=== PATIENT | male | born 1990 | race American Indian/Alaskan Native ===

== ENCOUNTER 2016-09-20 17:39 | Emergency (ER) | payer MEDICAID ==
[2016-09-20 18:09] VITALS: BP 173/95
--- NOTE | 2016-09-20 18:37 | EDM.PDOC ---
ED HPI ENT - General Chief Complaint: ENT Problem Stated Complaint: SORE THROAT Time Seen by Provider: 09/20/16 18:05 Source of Information: Reports: Patient History Limitations: Reports: No limitations - History of Present Illness INITIAL COMMENTS - FREE TEXT/NARRATIVE: This 25 yo male patient reports to the ED with a 2 day history of a sore throat with no fever. The patient has not been taking anything for temporary symptom relief. Symptom Onset Date: 09/18/16 Timing/Duration: Reports: Constant, Getting worse Severity: moderate Location: Reports: throat Quality: Reports: Ache, Dull Improves with: Reports: None Worsens with: Reports: None Associated Symptoms: Reports: no other symptoms - Related Data Allergies/ADRs: Allergies Allergy/AdvReac Type Severity Reaction Status Date / Time No Known Allergies Allergy Verified 09/20/16 18:10 Home Meds: Home Meds . [No Known Home Meds] 02/13/16 [History] Past Medical History - Past Health History Medical/Surgical History: Denies Medical/Surgical History HEENT History: Reports: None Cardiovascular History: Reports: None Respiratory History: Reports: None Gastrointestinal History: Reports: None Genitourinary History: Reports: None Musculoskeletal History: Reports: None Neurological History: Reports: None Psychiatric History: Reports: None Endocrine/Metabolic History: Reports: None Hematologic History: Reports: None Immunologic History: Reports: None Oncologic (Cancer) History: Reports: None Dermatologic History: Reports: None - Past Surgical History HEENT Surgical History: Reports: None Cardiovascular Surgical History: Reports: None Respiratory Surgical History: Reports: None GI Surgical History: Reports: None Male Surgical History: Reports: None Neurological Surgical History: Reports: None Musculoskeletal Surgical History: Reports: None Oncologic Surgical History: Reports: None Social & Family History - Family History Family Medical History: Noncontributory - Tobacco Use Smoking Status *Q: Never Smoker Second Hand Smoke Exposure: No - Caffeine Use Caffeine Use: Reports: Coffee, Soda - Recreational Drug Use Recreational Drug Use: No ED ROS ENT - Review of Systems Review Of Systems: ROS reveals no pertinent complaints other than HPI. ED EXAM, ENT - Physical Exam Exam: See Below Exam Limited By: No limitations General Appearance: alert, WD/WN, no apparent distress, obese Eye Exam: bilateral eye: EOMI, normal inspection, PERRL Ears: normal external exam, normal canal, hearing grossly normal, normal TMs Nose: normal inspection, normal mucousa, no blood Mouth/Throat: Normal gums, Normal lips, Normal teeth, Tonsillar erythema Head: atraumatic, normocephalic Neck: normal inspection, supple, non-tender, full range of motion Respiratory/Chest: no respiratory distress, lungs clear, normal breath sounds, no accessory muscle use, chest non-tender Cardiovascular: normal peripheral pulses, regular rate, rhythm, no edema, no gallop, no JVD, no murmur, no rub GI/Abdominal: normal bowel sounds, soft, non tender, no organomegaly, no distention, no abnormal bruit, no mass, other (morbid obesity ) (Male) Exam: Deferred Rectal (Males) Exam: Deferred Back: normal inspection, full range of motion Extremities: normal inspection, normal range of motion, non-tender, no pedal edema, normal capillary refill Neurological: alert, oriented, CN II-XII intact, normal cognition, normal gait, normal reflexes, no motor/sensory deficits Psychiatric: normal affect, normal mood Skin: Warm, Dry, Intact, Normal color, No rash Lymphatic: no adenopathy Course - Vital Signs Last Recorded V/S: Last Vital Signs Temp 37.7 C 09/20/16 18:07 Pulse 87 09/20/16 18:07 Resp 20 09/20/16 18:07 BP 173/95 H 09/20/16 18:07 Pulse Ox 98 09/20/16 18:07 - Orders/Labs/Meds Orders: Active Orders 24 hr Category Date Time Status CULTURE STREP A CONFIRMATION [] Stat Lab 09/20/16 18:10 Results STREP SCRN A RAPID W CULT CONF [] Stat Lab 09/20/16 18:10 Ordered Departure - Departure Time of Disposition: 18:34 Disposition: Home, Self-Care 01 Condition: fair Clinical Impression: URI (upper respiratory infection) Qualifiers: URI type: unspecified viral URI Qualified Code(s): J06.9 - Acute upper respiratory infection, unspecified; B97.89 - Other viral agents as the cause of diseases classified elsewhere Instructions: Upper Respiratory Infection, Pediatric Forms: ED Department Discharge Care Plan Goals: The patient was advised of the examination and lab results during the visit. The patient was encouraged to take over the counter medications for temporary symptom relief. If the patient has any additional symptoms or concerns, the patient should follow-up with his primary care facility or return to the emergency department. - My Orders Last 24 Hours: My Active Orders 09/20/16 18:10 CULTURE STREP A CONFIRMATION [RM] Stat STREP SCRN A RAPID W CULT CONF [RM] Stat - Assessment/Plan Last 24 Hours: My Active Orders 09/20/16 18:10 CULTURE STREP A CONFIRMATION [RM] Stat STREP SCRN A RAPID W CULT CONF [RM] Stat
== END 2016-09-20 18:46 | disposition home or self-care (01) ==
LOC: DL.ED 17:39
DX: J06.9 Acute upper respiratory infection, unspecified (principal); B97.89 Other viral agents as the cause of diseases classified elsewhere
CPT/HCPCS: 87081; 87430; 99282

== ENCOUNTER 2016-11-23 16:48 | Emergency (ER) | payer MEDICAID | END 2016-11-23 18:20 | disposition left against medical advice (07) | LOC: DL.ED 16:48 | DX: Z53.21 Procedure and treatment not carried out due to patient leaving prior to being seen by health care provider (principal) ==

== ENCOUNTER 2016-11-23 21:42 | Emergency (ER) | payer MEDICAID ==
[2016-11-23 22:18] VITALS: BP 148/99
--- NOTE | 2016-11-23 23:10 | EDM.PDOC ---
ED HISTORY OF PRESENT ILLNESS - General Chief Complaint: Fever Stated Complaint: STUFFY NOSE AND HIGH FEVER Time Seen by Provider: 11/23/16 22:15 Source of Information: Reports: Patient, Family History Limitations: Reports: No limitations - History of Present Illness INITIAL COMMENTS - FREE TEXT/NARRATIVE: c/o cough congestion with fever starting this am. Last tylenol at 0700. - Related Data Allergies/ADRs: Allergies Allergy/AdvReac Type Severity Reaction Status Date / Time No Known Allergies Allergy Verified 11/23/16 22:10 Home Meds: Home Meds . [No Known Home Meds] 02/13/16 [History] Past Medical History - Past Health History Medical/Surgical History: Denies Medical/Surgical History HEENT History: Reports: None Cardiovascular History: Reports: None Respiratory History: Reports: None Gastrointestinal History: Reports: None Genitourinary History: Reports: None Musculoskeletal History: Reports: None Neurological History: Reports: None Psychiatric History: Reports: None Endocrine/Metabolic History: Reports: None Hematologic History: Reports: None Immunologic History: Reports: None Oncologic (Cancer) History: Reports: None Dermatologic History: Reports: None - Infectious Disease History Infectious Disease History: Reports: None - Past Surgical History HEENT Surgical History: Reports: None Cardiovascular Surgical History: Reports: None Respiratory Surgical History: Reports: None GI Surgical History: Reports: None Male Surgical History: Reports: None Neurological Surgical History: Reports: None Musculoskeletal Surgical History: Reports: None Oncologic Surgical History: Reports: None Social & Family History - Family History Family Medical History: Noncontributory - Tobacco Use Smoking Status *Q: Never Smoker Second Hand Smoke Exposure: No - Caffeine Use Caffeine Use: Reports: Soda - Recreational Drug Use Recreational Drug Use: No ED ROS GENERAL - Review of Systems Review Of Systems: See Below Constitutional: Reports: fever HEENT: Reports: Sinus problem. Denies: Ear pain, Throat pain Respiratory: Reports: Cough. Denies: Shortness of Breath Cardiovascular: Reports: No symptoms GI/Abdominal: Reports: No symptoms Musculoskeletal: Reports: no symptoms Neurological: Reports: No Symptoms ED EXAM, GENERAL - Physical Exam Exam: See Below Exam Limited By: No limitations General Appearance: alert, no apparent distress, obese (morbid) Eye Exam: bilateral eye: EOMI Ears: normal external exam, normal TMs Nose: normal inspection Throat/Mouth: Normal inspection, Normal oropharynx Head: atraumatic, normocephalic. No: sinus tenderness Neck: normal inspection Respiratory/Chest: no respiratory distress, lungs clear, normal breath sounds Cardiovascular: normal peripheral pulses, regular rate, rhythm GI/Abdominal: soft Extremities: normal inspection Neurological: alert, oriented, normal cognition (mild cognitive impairment) Psychiatric: normal affect, normal mood Skin Exam: Warm, Dry, Intact, Normal color Course - Vital Signs Last Recorded V/S: Last Vital Signs Temp 97.4 F 11/23/16 22:12 Pulse 90 11/23/16 22:12 Resp 18 11/23/16 22:12 BP 148/99 H 11/23/16 22:12 Pulse Ox 97 11/23/16 22:12 - Radiology Interpretation Free Text/Narrative:: CXR negative Departure - Departure Time of Disposition: 22:57 Disposition: Home, Self-Care 01 Condition: good Clinical Impression: Upper respiratory infection Qualifiers: URI type: unspecified URI Qualified Code(s): J06.9 - Acute upper respiratory infection, unspecified Referrals: Shi Ceron MD [Primary Care Provider] - Forms: ED Department Discharge Additional Instructions: may alternate tylenol and ibuprofen every 4 hours as needed for fever robitussin or OTC cough medication per package instructions increase liquids follow up if symptoms worsen
== END 2016-11-23 23:12 | disposition home or self-care (01) ==
LOC: DL.ED 21:42
DX: J06.9 Acute upper respiratory infection, unspecified (principal)
CPT/HCPCS: 71020; 99283

== ENCOUNTER 2017-04-24 17:03 | Emergency (ER) | payer MEDICAID ==
--- NOTE | 2017-04-24 17:51 | EDM.PDOC ---
ED HPI GENERAL MEDICAL PROBLEM - General Chief Complaint: Chest Pain Stated Complaint: CHEST PAINS, [id number] Time Seen by Provider: 04/24/17 17:48 Source of Information: Reports: Patient, Family, RN, RN Notes Reviewed History Limitations: Reports: No Limitations - History of Present Illness Onset: Gradual Duration: Intermittent Location: Reports: Chest Quality: Reports: Ache, Pressure, Sharp Severity: Moderate Improves with: Reports: None Worsens with: Reports: Movement Context: Reports: Activity, Exercise, Lifting Associated Symptoms: Reports: No Other Symptoms Middle Chest Pain Score (Numeric/FACES): 5 - Related Data Allergies Allergy/AdvReac Type Severity Reaction Status Date / Time No Known Allergies Allergy Verified 04/24/17 17:32 Home Meds: Home Meds . [No Known Home Meds] 02/13/16 [History] Past Medical History - Past Health History Medical/Surgical History: Denies Medical/Surgical History HEENT History: Reports: None Cardiovascular History: Reports: None Respiratory History: Reports: None Gastrointestinal History: Reports: None Genitourinary History: Reports: None Musculoskeletal History: Reports: None Neurological History: Reports: None Psychiatric History: Reports: None Endocrine/Metabolic History: Reports: None Hematologic History: Reports: None Immunologic History: Reports: None Oncologic (Cancer) History: Reports: None Dermatologic History: Reports: None - Infectious Disease History Infectious Disease History: Reports: None - Past Surgical History HEENT Surgical History: Reports: None Cardiovascular Surgical History: Reports: None Respiratory Surgical History: Reports: None GI Surgical History: Reports: None Male Surgical History: Reports: None Neurological Surgical History: Reports: None Musculoskeletal Surgical History: Reports: None Oncologic Surgical History: Reports: None Social & Family History - Family History Family Medical History: Noncontributory - Tobacco Use Smoking Status *Q: Never Smoker Second Hand Smoke Exposure: No - Caffeine Use Caffeine Use: Reports: Soda - Recreational Drug Use Recreational Drug Use: No ED ROS GENERAL - Review of Systems Review Of Systems: ROS reveals no pertinent complaints other than HPI. ED EXAM, GENERAL - Physical Exam Exam: See Below Exam Limited By: No Limitations General Appearance: Alert, WD/WN, No Apparent Distress Eye Exam: Bilateral Eye: Normal Inspection, PERRL Ear Exam: Bilateral Ear: Auricle Normal, Canal Normal, TM normal Nose: Normal Inspection, Normal Mucosa, No Blood Throat/Mouth: Normal Inspection, Normal Lips, Normal Teeth, Normal Gums, Normal Oropharynx, Normal Voice, No Airway Compromise Head: Atraumatic, Normocephalic Neck: Normal Inspection, Supple, Non-Tender, Full Range of Motion Respiratory/Chest: No Respiratory Distress, Lungs Clear, Normal Breath Sounds, No Accessory Muscle Use. No: Chest Non-Tender Cardiovascular: Normal Peripheral Pulses, Regular Rate, Rhythm, No Gallop, No JVD, No Murmur, No Rub Peripheral Pulses: 2+: Radial (L), Radial (R) GI/Abdominal: Normal Bowel Sounds, Soft, Non-Tender (Male) Exam: Deferred Rectal (Males) Exam: Deferred Back Exam: Normal Inspection, Full Range of Motion Extremities: Normal Inspection, Normal Range of Motion, Non-Tender, No Pedal Edema, Normal Capillary Refill Neurological: Alert, Oriented, Normal Cognition, Normal Gait, No Motor/Sensory Deficits Psychiatric: Normal Affect, Normal Mood Skin Exam: Warm, Dry, Intact, Normal Color, No Rash Lymphatic: No Adenopathy EKG INTERPRETATION EKG Date: 04/24/17 Time: 17:34 Rhythm: NSR [place]: Normal P-Wave: Present QRS: Normal ST-T: Normal QT: Normal Comparison: NA - No Prior EKG Course - Vital Signs Last Recorded V/S: Last Vital Signs Temp 97.3 F 04/24/17 17:20 Pulse 86 04/24/17 17:20 Resp 20 04/24/17 17:20 BP 165/99 H 04/24/17 17:20 Pulse Ox 100 04/24/17 17:20 - Orders/Labs/Meds Orders: Active Orders 24 hr Category Date Time Status EKG Documentation Completion [RC] STAT Care 04/24/17 17:26 Active Labs: Laboratory Tests 04/24/17 04/24/17 04/24/17 Range/Units 17:56 17:56 18:43 WBC 7.8 (5.0-10.0) 10^3/uL RBC 5.42 (4.6-6.2) 10^6/uL Hgb 15.4 (14.0-18.0) g/dL Hct 46.8 (40.0-54.0) % MCV 86.3 (80-100) fL MCH 28.4 (27.0-34.0) pg MCHC 32.9 L (33.0-35.0) g/dL Plt Count 290 (150-450) 10^3/uL Neut % (Auto) 65.7 (42.2-75.2) % Lymph % (Auto) 22.7 (20.5-50.1) % [place] % (Auto) 7.7 (2-8) % Eos % (Auto) 3.8 H (1.0-3.0) % Baso % (Auto) 0.1 (0.0-1.0) % Sodium 137 (135-145) mmol/L Potassium 4.3 (3.6-5.0) mmol/L Chloride 97 L (101-111) mmol/L Carbon Dioxide 31.0 (21.0-31.0) mmol/L Anion Gap 13.3 BUN 14 (7-18) mg/dL Creatinine 0.8 (0.6-1.3) mg/dL Est Cr Clr Drug Dosing 151.65 mL/min Estimated GFR (MDRD) > 60 BUN/Creatinine Ratio 17.50 Glucose 100 (74-105) mg/dL Calcium 9.6 (8.4-10.2) mg/dl Total Bilirubin 0.5 (0.2-1.0) mg/dL AST 49 H (10-42) IU/L ALT 66 H (10-60) IU/L Alkaline Phosphatase 94 (42-121) IU/L Troponin I < 0.02 (0.00-0.02) ng/ml Total Protein 8.5 H (6.7-8.2) g/dl Albumin 4.0 (3.2-5.5) g/dl Globulin 4.5 Albumin/Globulin Ratio 0.89 Urine Color Yellow (YELLOW) Urine Appearance Clear (CLEAR) Urine pH 6.5 (5.0-9.0) Ur Specific [place] 1.025 (1.005-1.030) Urine Protein Negative (NEGATIVE) Urine Glucose (UA) Negative (NEGATIVE) Urine Ketones Negative (NEGATIVE) Urine Occult Blood Negative (NEGATIVE) Urine Nitrite Negative (NEGATIVE) Urine Bilirubin Negative (NEGATIVE) Urine Urobilinogen 0.2 (0.2-1.0) mg/dL Ur Leukocyte Esterase Negative (NEGATIVE) Urine RBC 0-5 /HPF Urine WBC 0-5 (0-5/HPF) /HPF Ur Epithelial Cells Few /HPF Urine Bacteria Few (0-FEW/HPF) /HPF - Radiology Interpretation Free Text/Narrative:: Chest xray: Unremarkable See rad report Departure - Departure Time of Disposition: 18:55 Disposition: Home, Self-Care 01 Condition: Good Clinical Impression: Acute costochondritis Muscle strain of chest wall Qualifiers: Encounter type: initial encounter Qualified Code(s): S29.011A - Strain of muscle and tendon of front wall of thorax, initial encounter Instructions: Costochondritis, [id number], Muscle Strain, [id number] Forms: ED Department Discharge Additional Instructions: Continue to exercise as tolerated. Ibuprofen as directed for pain. Follow up with your primary care provider in 4-5 days. - My Orders Last 24 Hours: My Active Orders 04/24/17 17:26 EKG Documentation Completion [RC] STAT - Assessment/Plan Last 24 Hours: My Active Orders 04/24/17 17:26 EKG Documentation Completion [RC] STAT
[2017-04-24 17:54] VITALS: BP 165/99
[2017-04-24 18:26] LABS: CHLORIDE,CL 97 mmol/L (101-111); SODIUM,NA 137 mmol/L (135-145)
--- NOTE | 2017-04-26 15:32 | EKG ---
04/24/2017 - CYNDEE STEPHENS - EKG per my reading shows sinus rhythm at the rate of 90. No acute ST changes. [facility] /[id number]
== END 2017-04-24 19:32 | disposition home or self-care (01) ==
LOC: DL.ED 17:03
DX: S29.011A Strain of muscle and tendon of front wall of thorax, initial encounter (principal); M94.0 Chondrocostal junction syndrome [Tietze]; X50.9XXA Other and unspecified overexertion or strenuous movements or postures, initial encounter
CPT/HCPCS: 36415; 71010; 80053; 81001; 84484; 85025; 93005; 93010; 99285

== ENCOUNTER 2017-08-04 16:14 | Emergency (ER) | payer MEDICAID ==
[2017-08-04 16:42] VITALS: BP 161/73
[2017-08-04] MEDS ORDERED: Codeine/Promethazine 10-6.25 MG/5 ML Syrup 5 ML UD Cup PO ONE (17:10)
[2017-08-04] MEDS ORDERED: predniSONE 20 MG Tab PO ONE (17:11)
[2017-08-04] MEDS ORDERED: Albuterol 6.7 GM Inhaler INH ONE (17:11)
--- NOTE | 2017-08-05 17:14 | EDM.PDOC ---
Scribed by Alondra Arciniega 08/05/17 1713 for Artem Armendariz MD ED HPI GENERAL MEDICAL PROBLEM - General Chief Complaint: ENT Problem Stated Complaint: COLD [id number] Time Seen by Provider: 08/04/17 16:32 Source of Information: Reports: Patient, RN, RN Notes Reviewed History Limitations: Reports: No Limitations - History of Present Illness INITIAL COMMENTS - FREE TEXT/NARRATIVE: Patient presents with complaint of 1 week of fever, cough, generalized body aches, and sore throat. Brother at home with same symptoms. Denies difficulty breathing or wheezing. Duration: Week(s): (1) Location: Reports: Other (sore throat) Quality: Reports: Ache, Burning Severity: Moderate Improves with: Reports: None Worsens with: Reports: None Associated Symptoms: Reports: No Other Symptoms - Related Data Allergies Allergy/AdvReac Type Severity Reaction Status Date / Time No Known Allergies Allergy Verified 08/04/17 17:35 Home Meds: Home Meds . [No Known Home Meds] 02/13/16 [History] Past Medical History - Past Health History Medical/Surgical History: Denies Medical/Surgical History HEENT History: Reports: None Cardiovascular History: Reports: None Respiratory History: Reports: None Gastrointestinal History: Reports: None Genitourinary History: Reports: None Musculoskeletal History: Reports: None Neurological History: Reports: None Psychiatric History: Reports: None Endocrine/Metabolic History: Reports: None, Obesity/BMI 30+ Hematologic History: Reports: None Immunologic History: Reports: None Oncologic (Cancer) History: Reports: None Dermatologic History: Reports: None - Infectious Disease History Infectious Disease History: Reports: None - Past Surgical History HEENT Surgical History: Reports: None Cardiovascular Surgical History: Reports: None Respiratory Surgical History: Reports: None GI Surgical History: Reports: None Male Surgical History: Reports: None Neurological Surgical History: Reports: None Musculoskeletal Surgical History: Reports: None Oncologic Surgical History: Reports: None Social & Family History - Family History Family Medical History: Noncontributory - Tobacco Use Smoking Status *Q: Never Smoker Second Hand Smoke Exposure: No - Caffeine Use Caffeine Use: Reports: Soda - Recreational Drug Use Recreational Drug Use: No ED ROS ENT - Review of Systems Review Of Systems: ROS reveals no pertinent complaints other than HPI. ED EXAM, ENT - Physical Exam Exam: See Below Exam Limited By: No Limitations General Appearance: Alert, No Apparent Distress, Obese Eye Exam: Bilateral Eye: Normal Inspection Ears: Normal External Exam, Normal Canal, Hearing Grossly Normal, Normal TMs Nose: No Blood, Other (mild nasal congestion with yellow mucus.) Mouth/Throat: Normal Lips, Other (streak of pharyngeal erythema.) Head: Atraumatic, Normocephalic Neck: Normal Inspection, Supple, Non-Tender, Full Range of Motion Respiratory/Chest: No Respiratory Distress, No Accessory Muscle Use, Chest Non- Tender, Decreased Breath Sounds, Other (harsh dry cough). No: Rhonchi, Wheezing , Stridor Cardiovascular: Normal Peripheral Pulses, Regular Rate, Rhythm, No Edema, No Gallop, No JVD, No Murmur, No Rub GI/Abdominal: Other (obese) (Male) Exam: Deferred Rectal (Males) Exam: Deferred Back: Normal Inspection, Full Range of Motion Extremities: Normal Inspection, Normal Range of Motion, Non-Tender, No Pedal Edema, Normal Capillary Refill Neurological: Alert, Oriented, CN II-XII Intact, Normal Cognition, Normal Gait, No Motor/Sensory Deficits Psychiatric: Normal Affect, Normal Mood Skin: Warm, Dry, Intact, Normal Color, No Rash Course - Vital Signs Last Recorded V/S: Last Vital Signs Temp 36.4 C 08/04/17 16:40 Pulse 72 08/04/17 16:40 Resp 24 H 08/04/17 16:40 BP 161/73 H 08/04/17 16:40 Pulse Ox 100 08/04/17 16:40 - Orders/Labs/Meds Orders: Active Orders 24 hr Category Date Time Status RT Post Treatment Assessment [RC] Click to Edit Care 08/04/17 17:12 Active RT Pre-Treatment Assessment [RC] Click to Edit Care 08/04/17 17:12 Active Labs: Rapid strep: Negative. Meds: Medications Discontinued Medications Generic Name Dose Route Start Last Admin Trade Name Freq PRN Reason Stop Dose Admin Albuterol 6.7 gm 08/04/17 17:11 08/04/17 17:19 Proventil Hfa INH 08/04/17 17:12 2 inhalation ONETIME ONE Administration Prednisone 60 mg 08/04/17 17:11 08/04/17 17:18 Prednisone PO 08/04/17 17:12 60 mg ONETIME ONE Administration Promethazine HCl/Codeine 10 ml 08/04/17 17:10 08/04/17 17:19 Phenergan With Codeine PO 08/04/17 17:11 10 ml ONETIME ONE Administration Departure - Departure Time of Disposition: 17:20 Disposition: Home, Self-Care 01 Condition: Good Clinical Impression: Viral URI with cough Acute bronchitis Qualifiers: Bronchitis organism: unspecified organism Qualified Code(s): J20.9 - Acute bronchitis, unspecified - Discharge Information Instructions: Acute Bronchitis, [id number], Upper Respiratory Infection, Adult, [id number] Referrals: PCP,None [Primary Care Provider] - Forms: ED Department Discharge Additional Instructions: RX: Prednisone 20mg. RX: Tesselon Perles 200mg. RX: Loratidine D 24hour. Use Albuterol inhaler 2 puffs q 4hours as needed. Follow up in clinic if not improving in 5 days. - My Orders Last 24 Hours: My Active Orders 08/04/17 17:12 RT Post Treatment Assessment [RC] Click to Edit RT Pre-Treatment Assessment [RC] Click to Edit - Assessment/Plan Last 24 Hours: My Active Orders 08/04/17 17:12 RT Post Treatment Assessment [RC] Click to Edit RT Pre-Treatment Assessment [RC] Click to Edit I have read and agree with the documentation that has been completed regarding this visit. By signing this record, I attest that the documentation was completed in my physical presence and is an accurate record of the encounter.
== END 2017-08-04 17:32 | disposition home or self-care (01) ==
LOC: DL.ED 16:14
DX: J20.9 Acute bronchitis, unspecified (principal); J06.9 Acute upper respiratory infection, unspecified
CPT/HCPCS: 87081; 87430; 99283; A9270

== ENCOUNTER 2017-12-30 17:47 | Emergency (ER) | payer MEDICAID ==
[2017-12-30 18:13] VITALS: BP 164/83
--- NOTE | 2017-12-30 18:56 | EDM.PDOC ---
ED HPI GENERAL MEDICAL PROBLEM - General Chief Complaint: Respiratory Problem Stated Complaint: COLD [id number] Time Seen by Provider: 12/30/17 18:45 Source of Information: Reports: Patient History Limitations: Reports: No Limitations - History of Present Illness INITIAL COMMENTS - FREE TEXT/NARRATIVE: This 27 yo male patient reports to the ED with a 3 day history of a cough and sore throat. The patient has taken "some" Robitussin and 1 dose of Tylenol last night. The patient has not been seen or attempted to be seen in the clinic. The patient reports his sore throat got much worse today with his cough. Onset Date: 12/28/17 Duration: Constant, Getting Worse Location: Reports: Neck (sore throat), Chest (cough) Quality: Reports: Other Severity: Moderate Improves with: Reports: None Worsens with: Reports: Other (cough) Associated Symptoms: Reports: Cough, Other (sore throat) Treatments [employer] WHEEL [employer]ER: Reports: Acetaminophen (At 2200 last night, but nothing today), Other Medication(s) (Robitussin for cough) Headache Pain Score (Numeric/FACES): 5 - Related Data Allergies Allergy/AdvReac Type Severity Reaction Status Date / Time No Known Allergies Allergy Verified 08/04/17 17:35 Home Meds: Home Meds . [No Known Home Meds] 02/13/16 [History] Past Medical History - Past Health History Medical/Surgical History: Denies Medical/Surgical History HEENT History: Reports: None Cardiovascular History: Reports: None Respiratory History: Reports: None Gastrointestinal History: Reports: None Genitourinary History: Reports: None Musculoskeletal History: Reports: None Neurological History: Reports: None Psychiatric History: Reports: None Endocrine/Metabolic History: Reports: None, Obesity/BMI 30+ Hematologic History: Reports: None Immunologic History: Reports: None Oncologic (Cancer) History: Reports: None Dermatologic History: Reports: None - Infectious Disease History Infectious Disease History: Reports: None - Past Surgical History HEENT Surgical History: Reports: None Cardiovascular Surgical History: Reports: None Respiratory Surgical History: Reports: None GI Surgical History: Reports: None Male Surgical History: Reports: None Neurological Surgical History: Reports: None Musculoskeletal Surgical History: Reports: None Oncologic Surgical History: Reports: None Social & Family History - Family History Family Medical History: Noncontributory - Tobacco Use Smoking Status *Q: Never Smoker - Caffeine Use Caffeine Use: Reports: None - Recreational Drug Use Recreational Drug Use: No ED ROS GENERAL - Review of Systems Review Of Systems: ROS reveals no pertinent complaints other than HPI. ED EXAM, GENERAL - Physical Exam Exam: See Below Exam Limited By: No Limitations General Appearance: Alert, WD/WN, Mild Distress, Obese (Morbid obesity) Eye Exam: Bilateral Eye: EOMI, Normal Inspection, PERRL Ears: Normal External Exam, Normal Canal, Hearing Grossly Normal, Normal TMs Nose: Normal Inspection, Normal Mucosa, No Blood Throat/Mouth: Normal Inspection, Normal Lips, Normal Teeth, Normal Gums, Normal Oropharynx, Normal Voice, No Airway Compromise Head: Atraumatic, Normocephalic Neck: Normal Inspection, Supple, Non-Tender, Full Range of Motion Respiratory/Chest: No Respiratory Distress, Lungs Clear, Normal Breath Sounds, No Accessory Muscle Use, Chest Non-Tender Cardiovascular: Normal Peripheral Pulses, Regular Rate, Rhythm, No Edema, No Gallop, No JVD, No Murmur, No Rub GI/Abdominal: Normal Bowel Sounds, Soft, Non-Tender, No Organomegaly, No Distention, No Abnormal Bruit, No Mass (Male) Exam: Deferred Rectal (Males) Exam: Deferred Back Exam: Normal Inspection, Full Range of Motion, NT Extremities: Normal Inspection, Normal Range of Motion, Non-Tender, Normal Capillary Refill, No Pedal Edema Neurological: Alert, Oriented, CN II-XII Intact, Normal Cognition, Normal Gait, Normal Reflexes, No Motor/Sensory Deficits Psychiatric: Normal Affect, Normal Mood Skin Exam: Warm, Dry, Intact, Normal Color, No Rash Lymphatic: No Adenopathy Course - Vital Signs Last Recorded V/S: Last Vital Signs Temp 36.2 C 12/30/17 18:12 Pulse 80 12/30/17 18:12 Resp 16 12/30/17 18:12 BP 164/83 H 12/30/17 18:12 Pulse Ox 97 12/30/17 18:12 - Orders/Labs/Meds Orders: Active Orders 24 hr Category Date Time Status COMPREHENSIVE METABOLIC PN,CMP [CHEM] Urgent Lab 12/30/17 19:05 Received CULTURE STREP A CONFIRMATION [RM] Stat Lab 12/30/17 18:51 Results STREP SCRN A RAPID W CULT CONF [RM] Stat Lab 12/30/17 18:51 Results Labs: Laboratory Tests 12/30/17 Range/Units 19:05 WBC 4.9 L (5.0-10.0) 10^3/uL RBC 5.63 (4.6-6.2) 10^6/uL Hgb 16.1 (14.0-18.0) g/dL Hct 48.0 (40.0-54.0) % MCV 85.3 (80-100) fL MCH 28.6 (27.0-34.0) pg MCHC 33.5 (33.0-35.0) g/dL Plt Count 234 (150-450) 10^3/uL Neut % (Auto) 51.7 (42.2-75.2) % Lymph % (Auto) 26.5 (20.5-50.1) % [place] % (Auto) 11.7 H (2-8) % Eos % (Auto) 9.9 H (1.0-3.0) % Baso % (Auto) 0.2 (0.0-1.0) % Departure - Departure Time of Disposition: 19:33 Disposition: Home, Self-Care 01 Condition: Fair Clinical Impression: Viral URI with cough - Discharge Information Instructions: Viral Respiratory Infection, Cijx-[id number]-[id number] Forms: ED Department Discharge Care Plan Goals: The patient was advised of the examination and lab results during the visit. The patient was encouraged to continue to take over the counter medications for temporary symptom relief. If the patient has any additional symptoms or concerns , the patient should follow-up with his primary care facility or return to the emergency department. - My Orders Last 24 Hours: My Active Orders 12/30/17 18:51 CULTURE STREP A CONFIRMATION [RM] Stat STREP SCRN A RAPID W CULT CONF [RM] Stat 12/30/17 19:05 COMPREHENSIVE METABOLIC PN,CMP [CHEM] Urgent - Assessment/Plan Last 24 Hours: My Active Orders 12/30/17 18:51 CULTURE STREP A CONFIRMATION [RM] Stat STREP SCRN A RAPID W CULT CONF [RM] Stat 12/30/17 19:05 COMPREHENSIVE METABOLIC PN,CMP [CHEM] Urgent
[2017-12-30 19:42] LABS: CHLORIDE,CL 104 mmol/L (101-111); SODIUM,NA 139 mmol/L (135-145)
== END 2017-12-30 19:40 | disposition home or self-care (01) ==
LOC: DL.ED 17:47
DX: J06.9 Acute upper respiratory infection, unspecified (principal)
CPT/HCPCS: 36415; 80053; 85025; 87081; 87430; 99283

== ENCOUNTER 2019-09-26 15:56 | Emergency (ER) | payer MEDICAID, OTHER ==
[2019-09-26 16:17] VITALS: BP 162/86; PULSE 68
--- NOTE | 2019-09-26 16:18 | EDM.PDOC ---
<Nathalie Oswald - Last Filed: 09/26/19 16:08> ED HPI GENERAL MEDICAL PROBLEM - General Stated Complaint: COUGH, STUFFY NOSE, SOARE THROAT Time Seen by Provider: 09/26/19 16:05 Source of Information: Reports: Patient History Limitations: Reports: No Limitations - History of Present Illness INITIAL COMMENTS - FREE TEXT/NARRATIVE: Patient presents to the ED by private vehicle accompanied by his mother with concerns of cough, sore throat, nasal congestion, and chills. The patient reports initially feeling ill August, without any improvement since. He describes his cough as productive. He denies coughing fits, denies body aches. He has not taken his temp at home. The patient reports taking tylenol, robitussin, and lemon tea for symptom relief. The patient's mother reports similar illness in their household the week prior. Onset Date: 09/21/19 Duration: Constant Quality: Reports: Ache Severity: Moderate Improves with: Reports: None Worsens with: Reports: None Context: Reports: Sick Contact Associated Symptoms: Reports: cough w sputum. Denies: Headaches, Nausea/ Vomiting Treatments [employer]PLITTING SUPERVISOR: Reports: Acetaminophen Other Treatments [employer] SPLITTING SUPERVISOR: robitussin, lemon tea - Related Data Allergies Allergy/AdvReac Type Severity Reaction Status Date / Time No Known Allergies Allergy Verified 09/26/19 16:14 Home Meds: Home Meds . [No Known Home Meds] 02/13/16 [History] Past Medical History - Past Health History Medical/Surgical History: Denies Medical/Surgical History HEENT History: Reports: None Cardiovascular History: Reports: None Respiratory History: Reports: None Gastrointestinal History: Reports: None Genitourinary History: Reports: None Musculoskeletal History: Reports: None Neurological History: Reports: None Psychiatric History: Reports: None Endocrine/Metabolic History: Reports: None, Obesity/BMI 30+ Hematologic History: Reports: None Immunologic History: Reports: None Oncologic (Cancer) History: Reports: None Dermatologic History: Reports: None - Infectious Disease History Infectious Disease History: Reports: None - Past Surgical History HEENT Surgical History: Reports: None Cardiovascular Surgical History: Reports: None Respiratory Surgical History: Reports: None GI Surgical History: Reports: None Male Surgical History: Reports: None Neurological Surgical History: Reports: None Musculoskeletal Surgical History: Reports: None Oncologic Surgical History: Reports: None Social & Family History - Family History Family Medical History: Noncontributory - Caffeine Use Caffeine Use: Reports: None ED ROS ENT - Review of Systems Review Of Systems: See Below Constitutional: Reports: Chills HEENT: Reports: Rhinitis, Sinus Problem (congestion), Throat Pain Respiratory: Reports: Wheezing, Cough, Sputum Cardiovascular: Denies: Chest Pain GI/Abdominal: Denies: Abdominal Pain, Constipation, Diarrhea ED EXAM, ENT - Physical Exam Exam: See Below Exam Limited By: No Limitations General Appearance: Alert, No Apparent Distress Eye Exam: Bilateral Eye: PERRL Ears: Normal External Exam, Normal Canal, Hearing Grossly Normal, TM Dullness Nose: Normal Inspection, Normal Mucousa Mouth/Throat: Pharyngeal Erythema, Tonsillar Erythema. No: Tonsillar Exudates Head: Atraumatic, Normocephalic Neck: Normal Inspection, Non-Tender. No: Lymphadenopathy (L), Lymphadenopathy ( R) Respiratory/Chest: No Respiratory Distress, Rhonchi, Wheezing. No: Respiratory Distress, Crackles, Rales, Stridor Cardiovascular: Normal Peripheral Pulses, Regular Rate, Rhythm, No Murmur Neurological: Alert, Oriented Psychiatric: Normal Affect, Normal Mood Skin: Warm, Dry, Intact Course - Vital Signs Last Recorded V/S: Last Vital Signs Temp 98.1 F 09/26/19 16:15 Pulse 68 09/26/19 16:15 Resp 14 09/26/19 16:15 BP 162/86 H 09/26/19 16:15 Pulse Ox 98 09/26/19 16:15 - Orders/Labs/Meds Orders: Active Orders 24 hr Category Date Time Status Chest 2V [CR] Stat Exams 09/26/19 16:18 Taken CULTURE STREP A CONFIRMATION [RM] Stat Lab 09/26/19 16:05 Results STREP SCRN A RAPID W CULT CONF [RM] Stat Lab 09/26/19 16:05 Results Meds: Medications Discontinued Medications Generic Name Dose Route Start Last Admin Trade Name Freq PRN Reason Stop Dose Admin Ceftriaxone Sodium 1 gm/ 0 gm 09/26/19 16:31 Lidocaine HCl 2.1 ml IM 09/26/19 16:32 ONETIME ONE Departure - Departure Time of Disposition: 16:33 Disposition: Home, Self-Care 01 Condition: Good Clinical Impression: Tonsillitis Upper respiratory infection Qualifiers: URI type: unspecified URI Qualified Code(s): J06.9 - Acute upper respiratory infection, unspecified - Discharge Information *PRESCRIPTION DRUG MONITORING PROGRAM REVIEWED*: Not Applicable *COPY OF PRESCRIPTION DRUG MONITORING REPORT IN PATIENT [place]: Not Applicable Instructions: Tonsillitis, [id number], Upper Respiratory Infection, Adult, [id number] Forms: ED Department Discharge Additional Instructions: Rx: Azithromycin 500 mg daily for 5 days. Prednisone 60 mg daily for 5 days. Take this medication prior to noon and with food. Throat lozenges, cough suppressant, cough expectorant for symptom relief. Encourage adequate hydration. Sepsis Event Note - Focused Exam Vital Signs: Vital Signs Temp Pulse Resp BP Pulse Ox 09/26/19 16:15 98.1 F 68 14 162/86 H 98 - My Orders Last 24 Hours: My Active Orders 09/26/19 16:05 CULTURE STREP A CONFIRMATION [RM] Stat STREP SCRN A RAPID W CULT CONF [RM] Stat 09/26/19 16:18 Chest 2V [CR] Stat - Assessment/Plan Last 24 Hours: My Active Orders 09/26/19 16:05 CULTURE STREP A CONFIRMATION [RM] Stat STREP SCRN A RAPID W CULT CONF [RM] Stat 09/26/19 16:18 Chest 2V [CR] Stat <Artem Armendariz - Last Filed: 09/26/19 16:35> Course - Re-Assessments/Exams Free Text/Narrative Re-Assessment/Exam: 09/26/19 16:35 I personally performed or re-performed the physical examination and medical decision making. I have verified all student documentation or findings, including history, physical exam and/or medical decision making. Sepsis Event Note - Focused Exam Date Exam was Performed: 09/26/19 Time Exam was Performed: 16:35
[2019-09-26] MEDS ORDERED: cefTRIAXone 1 GM, Lidocaine 1% 2.1 ML IM ONE ×2 (16:31)
--- NOTE | 2019-09-26 16:40 | CR ---
EXAMINATION: Chest 2V SEX: Male AGE: 28 years CLINICAL HISTORY: 28-year-old male with COUGH. INTERPRETATION: 1. Subtle density anteriorly right chest on lateral film that corresponds with the costochondral juncture of the fifth rib, on the right. Suggest old trauma and this appears to been present, in retrospect, on previous exam 23 Nov 2016. 2. Reasonable inspiratory effort obese male with normal cardiac silhouette. No vascular congestion, cephalization of flow or alveolar edema. No dependent pleural fluid accumulation. 3. Mild peribronchial "cuffing" suggesting reactive airway disease or bronchitis. Smoker? 4. No lung mass, hilar lymphadenopathy or focal lobar pneumonia. Patchy bronchiectasis in both bases. CONCLUSION: Bronchial inflammation and probable bronchiectasis. No new lung mass, hilar lymphadenopathy, focal lobar pneumonia or signs of heart failure since November 2016 exam.
== END 2019-09-26 17:02 | disposition home or self-care (01) ==
LOC: DL.ED 15:56
DX: J03.90 Acute tonsillitis, unspecified (principal); E66.9 Obesity, unspecified
CPT/HCPCS: 71046; 87081; 87430; 87804; 96372; 99283; J0696; J2001